=== PATIENT | female | born 1995 | race Caucasian/White ===

== ENCOUNTER 2017-02-16 17:38 | Emergency (ER) | payer OTHER ==
[~2017-02-16] VITALS: Ht 157.5 cm; Wt 76.0 kg
[~2017-02-16 17:38] MED LIST: NITR-58 PO
[2017-02-16 17:47] VITALS: Ht 157.5 cm; Wt 76.0 kg
--- NOTE | 2017-02-16 18:10 | ERD ---
ER Documentation Chief Complaint Date/Time DATE: 02/16/17 TIME: 18:08 Chief Complaint FELL A MONTH AGO, HAS LEFT ANKLE PAIN HPI This 21-year-old female presents to emergency department today with complaint of right ankle injury x 6 weeks fell off stairs skipping 3 or 4. pt has not treated with RICE therapy ; ankle still in painful with ADL ROS All systems reviewed and are negative except as per history of present illness. Medications Home Meds Active Scripts Nitrofurantoin Monohyd Macrocr* (Macrobid*) 100 Mg Capsr, 100 MG PO BID for 7 Days, CAP Prov:JAYNA DURÁN MD 02/21/16 Allergies Allergies: Coded Allergies: No Known Allergy (Unverified , 02/16/17) PMhx/Soc History of Surgery: Yes ( x 1) Anesthesia Reaction: No Hx Neurological Disorder: No Hx Respiratory Disorders: No Hx Cardiac Disorders: No Hx Psychiatric Problems: No Hx Miscellaneous Medical Probl: No Hx Alcohol Use: No Hx Substance Use: No Hx Tobacco Use: No Physical Exam Vitals Vital Signs Date Time Temp Pulse Resp B/P Pulse Ox O2 Delivery O2 Flow Rate FiO2 02/16/17 17:47 98.1 82 18 127/59 99 Physical Exam Const: Well-nourished well-appearing well-hydrated 21-year-old female no acute distress Head: Eyes: ENT: Neck: Resp: Cardio: Abd: Skin: No petechiae or rashes Back: Lower Extremity -left ankle: Skin: No laceration Compartments: Soft Motor: Pain with lateral bending, flexion and extension Sensation: Intact to light touch Superior inferior and lateral surfaces. Bones: Nontender pelvis/knee/proximal tibia/ malleoli, Palpable tenderness at talus Joints: No effusion or laxity Pulses/Perfusion: [2+ DP, Capillary refill < 2 seconds] Neur: Awake and alert Psych: Normal Mood and Affect Results 24 hrs Current Medications Medications (Trade) Dose Ordered Sig/Rasheeda Route PRN Reason Start Time Stop Time Status Last Admin Dose Admin Ibuprofen (Motrin) 400 mg ONCE ONCE PO 02/16/17 18:30 02/16/17 18:31 DC 02/16/17 18:59 Procedures/MDM This 21-year-old female presents to the emergency department reporting a 6 week old ankle injury. Patient reports pain with ambulation. Denies that she has wrist or ankle, she has not used any ice supportive bandage, she is not tried [id number] medication. Patient assumed the pain would resolve without intervention. Patient reports it has continued she has pain and swelling with ambulating. Today's emergency room visit includes a x-ray of left ankle with radiologist's impression as soft tissue swelling over the medial malleolus and anterior ankle ligamentous and tendinous injuries is not excluded. If characterization of the ligaments and tendons is needed MRI is recommended. If there is high clinical suspicion for bony traumatic injury further evaluation with CT should be considered. Patient reports that she missed 3-4 steps and landed on ankle. Does not have time for a CAT scan today. Patient was instructed to follow-up with her primary care physician for further imaging if necessary, today plan to treat with rice therapy rest, ice, compression, elevation. Naprosyn 500 mg 1 tab p.o. twice daily 10 days. Patient is stable with no new complaints during ER course, clinically there is no current evidence to suggest Acute fracture, dislocation, osteomyelitis,or any other emergent condition appearing to require further evaluation or hospitalization. I feel the patient is stable for discharge at this time. I have discussed results, examination findings, the treatment plan with the patient and family present prior to discharge. Indications for emergent reevaluation, side effects of medication were also discussed. All questions were answered. Patient verbalizes understanding and agrees with plan of care. Departure Diagnosis: Primary Impression: Ankle pain Chronicity: unspecified Laterality: left Qualified Code: M25.572 - Left ankle pain, unspecified chronicity Condition: Good Patient Instructions: Sprain, Ankle, With X-Ray [facility] Additional Instructions: Thank you for for coming to [facility] for your care today. Please ask your nurse or provider if you have questions about your care today and do not leave until all your questions have been answered. Please use any medications given as directed and follow-up with your doctor (or the doctor you were referred to) in the next 2-3 days. If you do not have a primary care doctor [place] [facility] [place] You may also use motrin and tylenol as needed for fever and/or pain unless instructed otherwise by your provider or nurse. Indications for more urgent follow-up have been discussed, but you may return to the Emergency Department at ANY time for any worrisome or worsening symptoms. If you have abdominal pain, please know that no test or exam you received is perfect and you should follow up within 8 hours for continued pain. If you had any imaging studies today, such as an X-Ray or CT Scan, these studies will be reviewed later by a radiologist. You will be called if there are important findings that were not identified today, so make sure the contact information you provided at registration is correct. If you received any narcotic pain control medicine today, such as Vicodin, Morphine or Dilaudid, your coordination and judgment may be affected for a number of hours. Please do not drive or operate heavy machinery, and you may want someone to assist you at home. If you were given a prescription for narcotic medication, be aware that it is very addictive- use sparingly and only if necessary. NELY PATEL Feb 16, 2017 18:10
[2017-02-16] MEDS ORDERED: IBUPROFEN 200 MG TAB PO ONE (18:30)
--- NOTE | 2017-02-16 19:03 | RADRPT ---
PROCEDURE: XR Ankle 3 Views. CLINICAL INDICATION: Left ankle pain and trauma. TECHNIQUE: AP, oblique and lateral views of the left ankle were performed. COMPARISON: None. FINDINGS: The osseous structures are intact. No destructive bony lesions are observed. Interosseous spaces a ppear normal. Soft tissue swelling is seen over the medial malleolus and anterior ankle. IMPRESSION: Soft tissue swelling over the medial malleolus and anterior ankle. Ligamentous and tendinous injury is not excluded. If characterization of the ligaments and tendons is needed MRI is recommended. If there is high clinical suspicion for bony traumatic injury, further evaluation with CT should be considered. RPTAT: AA .Kvng Estrada MD, MD Date Time Electronically viewed and signed by .Kvng Estrada MD, on 02/16/2017 19:03 .P/
[2017-02-16] MEDS ORDERED: NAPR-260 PO (20:51)
[2017-02-16 21:10] VITALS: BP 125/61; PULSE 79; RESP 18; TEMP 98
== END 2017-02-16 21:11 | disposition home or self-care (01) ==
LOC: FTE 17:38
DX: M25.572 Pain in left ankle and joints of left foot (principal)
CPT/HCPCS: 73610; Z7502; Z7610